=== PATIENT | female | born 1955 | race Caucasian/White ===

== ENCOUNTER 2022-01-20 14:00 | Outpatient (RCR) | payer OTHER, SELFPAY | END 2022-01-27 15:17 | disposition home or self-care (01) | PROVIDERS: Visit Provider Family Medicine | DX: M48.07 Spinal stenosis, lumbosacral region (principal); Z51.89 Encounter for other specified aftercare | CPT/HCPCS: 97110; 97161; 97162 ==

== ENCOUNTER 2023-03-30 07:45 | Outpatient (RCR) | payer OTHER, SELFPAY | END 2023-06-29 12:30 | disposition home or self-care (01) | PROVIDERS: PCP Family Medicine; Visit Provider Family Medicine | DX: M51.16 Intervertebral disc disorders with radiculopathy, lumbar region (principal); M51.36 Other intervertebral disc degeneration, lumbar region; Z51.89 Encounter for other specified aftercare | CPT/HCPCS: 97110; 97140; 97161 ==

== ENCOUNTER 2024-08-01 16:30 | Outpatient (RCR) | payer BC, SELFPAY ==
--- NOTE | 2024-07-11 18:00 | PT.OPEX ---
PT [place] [facility] PT [facility] Out[facility] Eval Start: 07/11/24 15:40 Freq: Status: Active Protocol: Document 07/11/24 15:40 ARR (Rec: 07/11/24 17:58 ARR [id number]) E-signed By Sara Ochoa DPT Physical Therapy Outpatient Evaluation Insurance Information Recert Due Date 09/09/24 Insurance Name [employer] Provider Fax Number [phone] Medical Diagnosis Low back pain unspecified Chronic lumbago, has had 2 ablations. PT eval/treat as needed. Treating Diagnosis M48.06 lumbar spinal stenosis Referring MD Hailee Winters MD ([facility] [place]) Subjective Subjective Noting lower back pain not much currently. 1 year after radiofrequency ablation then it returns. Notices some pain during the day. Not daily. Hasn?t needed pain medications for management. 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 Palpation: TTP lumbar/thoracic paraspinals with increased tone SLS (30 sec): <10 sec on L LE with moderate pelvic drop Gait: antalgic gait RANGE OF MOTION: Lumbar ROM: -Flx: fingertips to floor -Ext: 50% limitation in segmental spine -R Rot: reduced 25% -L Rot: reduced 25% LE ROM (R/L): -Hip ER90: 40/40 -Hip IR90: 40/40 -Hip flex: 120 -Knee Ext: hyperextension with passive mvmt STRENGTH: LE Strength (R/L) -Hip abduction 2+ ea side SPECIAL TESTS: LE Flexibility (R/L) -Hamstring: -/- -Piriformis: +/+ -Prone knee bend:NT Assessment Assessment/Impression Pt is a 69 y/o female who presents with concerns of low back pain chronic in nature with acute flare of chronic condition. Signs and symptoms likely indicating / consistent with lumbar stenosis with loss of mvmt following capsular pattern. Patient also has notable objective findings including loss of LS lordosis, glut weakness, hip ER tightness, TA inhibition also likely contributing to the problem. Patient is a good candidate for skilled therapy to target deficits described above. Skilled PT intervention is necessary for use of therapeutic exercise manual therapy, neuromuscular re- education, gait training, and therapeutic activity. 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 See appropriate sections of PT eval for complete list of goals and POC. D/C plan and criteria is for pt to achieve the goals as listed below or until max rehab potential is met. Pt was agreeable with plan of care and goals established. Plan of Care Physical Therapy Goals STG (within 2 visits) 1) Pt will initiate HEP without increased pain/ symptoms LTG (within 5 visits) 1) Pt will be indep with HEP for ocean transportation intermediary management of pain/symptoms 2) Pt will demonstrate ability to isometrically activate TA and gluts with minimal compensations in order to improve lumbopelvic stability 3) Pt will report at least 60% improvement in pain/symptoms since start of PT for return to PLOF Treatment Plan/Direct Interventions Electrical Stimulation,Joint Mobilization,Manual Therapy, Neuromuscular Re-ed,Self-Care/ Home Management,Therapeutic Exercises,Traction (Mechanical ) Frequency/Duration 1x/wk x 5 visits within 60 days Evaluation Billing Untimed Code Treatment Minutes 15 Complexity Low Certification Information Initial Certification Date 07/11/24 Ending Certification Date 10/09/24 Provider Signature Required Yes Provider Signature Shows Agreement With POC & Medical Necessity Physician NPI Number Write NPI# Here Physician Comment/Change : Physician Signature & Date Requested Please Sign/Date Here
== END 2024-10-17 15:55 | disposition home or self-care (01) ==
PROVIDERS: PCP Family Medicine; Visit Provider Family Medicine
DX: M54.50 Low back pain, unspecified (principal); G89.29 Other chronic pain; M48.061 Spinal stenosis, lumbar region without neurogenic claudication; Z51.89 Encounter for other specified aftercare
CPT/HCPCS: 97110; 97140; 97161